=== PATIENT | male | born 1995 | race Two or more races ===

== ENCOUNTER 2022-02-28 07:18 | Emergency (ER) | payer SELFPAY ==
[~2022-02-28] VITALS: Ht 175.3 cm; Wt 72.6 kg
[2022-02-28] MEDS ORDERED: LORAZEPAM 1 MG TABLET PO ONE (08:00)
[2022-02-28] MEDS ORDERED: LORAZEPAM 1 MG TABLET ONE (08:01)
--- NOTE | 2022-02-28 09:00 | NUR ---
The patient bibs for [id number] from home c/o sudden onset chest and groin area pain x 30mins [employer] admits to taking meth and percocet prior to onset of symptoms. The patient denies having any pain/discomfort at this time. In room air and denies SOB. Respiration regular and unlabored. The patient is attached to the monitor. Will continue to monitor the patient
[2022-02-28 10:40] VITALS: BP 131/72
--- NOTE | 2022-02-28 10:40 | NUR ---
Patient discharged to home in stable condition. Written and verbal after care instructions given. Patient verbalizes understanding of instruction.
== END 2022-02-28 10:41 | disposition home or self-care (01) ==
LOC: ER 07:20
DX: R00.2 Palpitations (principal); F15.90 Other stimulant use, unspecified, uncomplicated; Z88.1 Allergy status to other antibiotic agents; Z88.0 Allergy status to penicillin
CPT/HCPCS: 71045-TC